=== PATIENT | female | born 1995 | race Caucasian/White ===

== ENCOUNTER 2020-11-20 18:45 | Emergency (ER) | payer BC ==
--- NOTE | 2020-11-20 19:34 | EDM.PDOC ---
ED HPI GENERAL MEDICAL PROBLEM - General Chief Complaint: Bite:Animal, Insect Stated Complaint: DOG BITE ON LEFT HAND Time Seen by Provider: 11/20/20 18:51 Source of Information: Reports: Patient History Limitations: Reports: No Limitations - History of Present Illness INITIAL COMMENTS - FREE TEXT/NARRATIVE: Patient is a 25-year-old female who was breaking up a fight between her 2 dogs when she was bitten by one of them on her left hand numerous sites on all 4 fingers. Patient is uncertain whether there is any bony involvement. Dog is up-to-date with shots. Patient's tetanus shot was 9 years ago. She has no other complaints and denies any other injuries. Onset: Today Location: Reports: Upper Extremity, Left Quality: Reports: Ache Severity: Mild Improves with: Reports: None Worsens with: Reports: None Associated Symptoms: Reports: No Other Symptoms Left Hand Pain Score (Numeric/FACES): 4 - Related Data Allergies Allergy/AdvReac Type Severity Reaction Status Date / Time No Known Allergies Allergy Verified 11/20/20 19:34 Home Meds: Home Meds Amoxicillin/Potassium Clav [Augmentin 875-125 Tablet] 1 each PO BID #14 tablet 11/20/20 [Rx] ED ROS GENERAL - Review of Systems Review Of Systems: Comprehensive ROS is negative, except as noted in HPI. ED EXAM, ANIMAL BITE - Physical Exam Exam: See Below Exam Limited By: No Limitations General Appearance: Alert, No Apparent Distress Head: Normocephalic Respiratory/Chest: No Respiratory Distress GI/Abdominal: No Distention Back Exam: Full Range of Motion Extremities: Normal Capillary Refill, Other (Multiple small bites to all 4 fingers on both sides of each finger. None of these wounds are bleeding. Patient has some swelling with slight decreased range of motion secondary to this.) Neurological: Alert, Oriented Psychiatric: Normal Affect Skin Exam: Warm/Dry Lymphatic: No Adenopathy Course - Vital Signs Text/Narrative:: X-ray of patient's left hand shows no bony injury. Patient had wound soaked in Hibiclens. She will have bacitracin dressing applied. I am starting her on Augmentin for a 7-day course. Patient has one laceration that could have benefited by suturing but she refuses suturing at this point. Patient's significant other who is in the room seems to be very concerned about the cost of this visit. Patient understands that if any sign of infection or her symptoms are getting worse she is to immediately return to emergency department. Last Recorded V/S: Last Vital Signs Temp 98.9 F 11/20/20 19:29 Pulse 56 L 11/20/20 19:29 Resp 20 11/20/20 19:29 BP 134/80 11/20/20 19:29 Pulse Ox 98 11/20/20 19:29 Departure - Departure Time of Disposition: 20:28 Disposition: Home, Self-Care 01 Condition: Good Clinical Impression: Dog bite of left hand - Discharge Information Instructions: Animal Bite, Adult, [id number] Referrals: Susana Reed, [facility] [Primary Care Provider] - Forms: ED Department Discharge Additional Instructions: Antibiotic ointment twice a day until healed. Augmentin as prescribed. Return to ER if any sign of infection or symptoms worse. Follow-up with PCP if not improving. Tylenol and ibuprofen as needed. Sepsis Event Note (ED) - Evaluation Sepsis Screening Result: No Definite Risk - Focused Exam Vital Signs: Vital Signs Temp Pulse Resp BP Pulse Ox 11/20/20 19:29 98.9 F 56 L 20 134/80 98
--- NOTE | 2020-11-20 20:23 | CR ---
Left hand: 3 views of the left hand were obtained. Comparison: No prior hand exam is available. Joint spaces are preserved. No radiopaque foreign object is seen. No acute fracture, dislocation or other bony abnormality is appreciated. Impression: 1. Nothing acute is seen on left hand exam. Diagnostic code #1
[2020-11-20] MEDS ORDERED: Amoxicillin/Clavulanate K 875-125 MG Tab PO ONE (20:29)
== END 2020-11-20 20:43 | disposition home or self-care (01) ==
LOC: JD.ED 18:45
DX: S61.452A Open bite of left hand, initial encounter (principal); W54.0XXA Bitten by dog, initial encounter
CPT/HCPCS: 73120; 99283; A9270

== ENCOUNTER 2024-05-30 03:12 | Inpatient (IN) | payer BC ==
[2024-05-30] MEDS ORDERED: Lidocaine 1% 50 ML MDV INJECT PRN (03:33)
[2024-05-30] MEDS ORDERED: Acetaminophen 325 MG Tab PO PRN ×2 (03:33→08:02)
[2024-05-30] MEDS ORDERED: Nalbuphine 10 MG/1 ML Vial IVPUSH PRN (03:33)
[2024-05-30] MEDS ORDERED: Calcium Carbonate 500 MG Tab.Chew PO PRN (03:33)
[2024-05-30] MEDS ORDERED: Lactated Ringers 1,000 ML IV SCH (03:45)
[2024-05-30] MEDS ORDERED: Oxytocin/0.9 % Sodium Chloride 30 UNIT/500 ML BAG IV SCH (03:45)
[2024-05-30] MEDS: Ondansetron 4 MG/2 ML SDV IVPUSH PRN (03:47)
[2024-05-30 04:00] LABS: BASOPHILS PERCENT AUTO 0.2 % (0.0-1.0); EOSINOPHILS PERCENT AUTO 0.3 % (0.0-6.0); HEMATOCRIT 36.4 % (37.0-47.0); IMMATURE GRAN ABSOLUTE AUTO 0.06 K/mm3 (0.00-0.05); IMMATURE GRAN PERCENT AUTO 0.5 % (0.0-0.4); LYMPHOCYTES ABSOLUTE AUTO 2.1 K/mm3 (1.0-4.8); LYMPHOCYTES PERCENT AUTO 17.3 % (24.0-44.0); MEAN CORPUSCULAR HEMOGLOBIN 28.9 pg (28.0-32.0); MEAN CORPUSCULAR VOLUME 87.7 fl (83.0-99.0); MEAN PLATELET VOLUME 10.4 fl (9.4-12.3); MONOCYTES ABSOLUTE AUTO 0.6 K/mm3 (0.0-0.8); MONOCYTES PERCENT AUTO 5.4 % (0.0-8.0); NEUTROPHILS ABSOLUTE AUTO 9.1 K/mm3 (1.8-7.7); NEUTROPHILS PERCENT AUTO 76.3 % (41.0-71.0); PLATELET COUNT,PLT 323 K/mm3 (150-400); RED BLOOD CELL COUNT 4.15 M/mm3 (4.10-5.30); WHITE BLOOD CELL COUNT,WBC 11.89 K/mm3 (3.9-11.3)
[2024-05-30] MEDS: Oxytocin/0.9 % Sodium Chloride 30 UNIT/500 ML BAG IV SCH (05:30)
[2024-05-30] MEDS ORDERED: Docusate Sodium 100 MG Cap PO PRN (08:02)
[2024-05-30] MEDS ORDERED: Witch Hazel Medicated Pads 40/Jar TOP PRN (08:02)
[2024-05-30] MEDS ORDERED: Benzocaine/Menthol 20%-0.5% Spray 78 GM Cannister TOP PRN (08:02)
[2024-05-30] MEDS: Ibuprofen 600 MG Tab PO SCH (13:47)
== END 2024-05-31 16:45 | disposition home or self-care (01) | DRG 560 ==
LOC: JD.OBCHECK 03:12 → JD.OB 03:19 → JD.OBCHECK 03:33 → JD.OB 03:41 → OBSVTOIN 05:26 → JD.OB 05:27
PROVIDERS: ADMIT Obstetrics & Gynecology; ATTEND Obstetrics & Gynecology
PROC: 0KQM0ZZ Repair Perineum Muscle, Open Approach (ICD-10-PCS; principal; 2024-05-30)
PROC: 10E0XZZ Delivery of Products of Conception, External Approach (ICD-10-PCS; principal; 2024-05-30)
DX: O80 Encounter for full-term uncomplicated delivery (principal); O70.1 Second degree perineal laceration during delivery; Z3A.39 39 weeks gestation of pregnancy; Z37.0 Single live birth; Z79.899 Other long term (current) drug therapy; Z98.890 Other specified postprocedural states; Z72.0 Tobacco use
CPT/HCPCS: 36415; 59025; 59409; 85025; 86592; 86850; 86900; 86901; J2405; J7999